=== PATIENT | female | born 1930 | race Caucasian/White ===

== ENCOUNTER 2016-07-14 16:05 | Inpatient (IN) | payer MEDICARE, OTHER ==
--- NOTE | 2016-07-14 16:28 | EDPHY ---
H & P Stated Complaint: Fall, neck and back pain Source: Patient, Family Exam Limitations: Other (cervical spine pain) - Medical/Surgical History Other PMH: Alzheimer's disease, GERD, hyperlipidemia, venous insufficiency, Osteoporosis - Family History Significant Family History: No pertinent family hx - Social History Smoking Status: Never smoked Alcohol Use: Rarely Drug Use: None Time Seen by Provider: 07/14/16 16:28 HPI/ROS: HPI: 85-year-old Alzheimer's demented female presents to emergency department by EMS with chief concern fall. A tech at [facility] where she lives heard her fall and found her on the floor. Patient complained of neck pain. Reports headache, left elbow pain, bilateral knee pain. Denies fever, chills, URI symptoms, shortness of breath, chest pain, abdominal pain, nausea, vomiting, diarrhea, urinary symptoms. Daughter reports multiple falls over the past 2 days. No allergies. ROS:10 point review of systems is negative other than as stated in HPI (Fallon Su) - Social History Additional Social History: Lives independently at [facility] (Fallon Su) - Physical Exam Exam: VS: Reviewed by me, see NN. General: Well developed, well nourished, in no acute distress. Head: Normalocephalic. Atraumatic. Face: Atraumatic. EENT: PERRLA. EOMI. No nystagmus. TMs intact bilaterally with normal landmarks. No rhinnorhea, nasal passages clear. Oropharynx without trauma or malocclusion. Neck: Supple, midline tenderness at C4-C5. Chest: Nontender, no subcutaneous air palpable. Respiratory: Breathing unlabored. Breath sounds equal bilaterally and clear to auscultation. No adventitious sounds. CV: Chest nontender, atraumatic. Heart rate regular. No murmur, distal pulses 2+ bilaterally. Brisk cap refill all extremities. GI: Abdomen soft, nontender. Nondistended. Bowel sounds normoactive and positive x4 quadrants. : No CVA tenderness. Back: no midline thoracic or lumbar tenderness Neuro: Alert. Oriented x 3. Speech clear. Nonfocal cranial nerves throughout. Sensation intact all extremities. Normal motor. Strength equal in 5 + all extremities. Skin: Skin warm, dry, Swelling right knee, ecchymosis left elbow, ecchymosis mid thoracic spine. Extremities: Atraumatic. Normal range of motion. (Fallon Su) Constitutional: Initial Vital Signs Temperature (C) 36.1 C 07/14/16 16:05 Heart Rate 76 07/14/16 16:05 Respiratory Rate 16 07/14/16 16:05 Blood Pressure 149/70 H 07/14/16 16:05 O2 Sat (%) 97 07/14/16 16:05 O2 Delivery Mode Room Air Allergies/Adverse Reactions: No Known Allergies Allergy (Unverified 07/14/16 16:18) Home Medications: Medication Instructions Recorded Donepezil HCl 07/14/16 LORAZEPAM 07/14/16 Memantine HCl 07/14/16 Protonix 07/14/16 SIMVASTATIN 07/14/16 Seroquel 07/14/16 Medical Decision Making - Diagnostics EKG Interpretation: 12 lead EKG is interpreted in Trace master View by emergency department physician. There are no acute ischemic changes. (Demetria Atkinson) Imaging Results: Imaging Impressions Cervical Spine CT 07/14/16 16:32 Impression: 1. Normal brain. 2. Thick calvarium.? Chronic seizure medication. 2. CT Cervical Spine Without Contrast History: Trauma. Pain post fall. Technique: Multislice helical CT through the cervical spine without contrast from the skull base to T1. Soft tissue and bone evaluation is performed. Sagittal and coronal reconstructions are obtained and reviewed. Dose reduction techniques were utilized. Findings: Cervical alignment is anatomic. Is mild degenerative spondylolisthesis at C3-C4 and C7-T1 and mild degenerative retrolisthesis at C5- C6. No fracture or dislocation is identified. The alignment between skull base and C1 is normal. The C1-C2 articulation is normally aligned, but osteoarthritic. The odontoid process is intact. There is severe degenerative disk space narrowing between C4 and C7 with a vacuum phenomenon at C6-C7. Facet joints are normally aligned. There is marked degenerative change of left facets C3-C5 and right facet at C7-T1. The cervical thoracic junction is normally aligned. Soft tissue window evaluation does not show evidence of epidural or prevertebral hematoma. Incidentally noted is an 8 mm low-density nodule in the right thyroid lobe that does not require any further imaging workup. Impression: No acute posttraumatic abnormality identified. 3. CT pelvis, without contrast Technique: [address] through the pelvis without contrast. Dose reduction techniques were utilized. Sagittal and coronal reconstructions are obtained and reviewed. A 3-dimensional model was constructed to assess alignment. History: Fall, pain, history of old pelvic fractures Comparison: None Findings: SI joints, pubic symphysis and hip joints are normally aligned. There are old healed fractures of the right superior and inferior pubic rami. There is an old fracture deformity of the left superior articulating facet of L4. The sacrum and coccyx are intact. There is degenerative disk disease at L4- L5. There is no evidence for a pelvic hematoma or free fluid. There is no gluteal hematoma. Nothing acute identified. Results called to Fallon Su at 5:19 PM. Final results are concordant with the initial interpretation. General information for patients regarding this examination can be found at [email or web address]. If you have questions or comments about this report, please contact me at (hospital) or [phone] (cell). Head CT 07/14/16 16:32 Impression: 1. Normal brain. 2. Thick calvarium.? Chronic seizure medication. 2. CT Cervical Spine Without Contrast History: Trauma. Pain post fall. Technique: Multislice helical CT through the cervical spine without contrast from the skull base to T1. Soft tissue and bone evaluation is performed. Sagittal and coronal reconstructions are obtained and reviewed. Dose reduction techniques were utilized. Findings: Cervical alignment is anatomic. Is mild degenerative spondylolisthesis at C3-C4 and C7-T1 and mild degenerative retrolisthesis at C5- C6. No fracture or dislocation is identified. The alignment between skull base and C1 is normal. The C1-C2 articulation is normally aligned, but osteoarthritic. The odontoid process is intact. There is severe degenerative disk space narrowing between C4 and C7 with a vacuum phenomenon at C6-C7. Facet joints are normally aligned. There is marked degenerative change of left facets C3-C5 and right facet at C7-T1. The cervical thoracic junction is normally aligned. Soft tissue window evaluation does not show evidence of epidural or prevertebral hematoma. Incidentally noted is an 8 mm low-density nodule in the right thyroid lobe that does not require any further imaging workup. Impression: No acute posttraumatic abnormality identified. 3. CT pelvis, without contrast Technique: [address] through the pelvis without contrast. Dose reduction techniques were utilized. Sagittal and coronal reconstructions are obtained and reviewed. A 3-dimensional model was constructed to assess alignment. History: Fall, pain, history of old pelvic fractures Comparison: None Findings: SI joints, pubic symphysis and hip joints are normally aligned. There are old healed fractures of the right superior and inferior pubic rami. There is an old fracture deformity of the left superior articulating facet of L4. The sacrum and coccyx are intact. There is degenerative disk disease at L4- L5. There is no evidence for a pelvic hematoma or free fluid. There is no gluteal hematoma. Nothing acute identified. Results called to Fallon Su at 5:19 PM. Final results are concordant with the initial interpretation. General information for patients regarding this examination can be found at [email or web address]. If you have questions or comments about this report, please contact me at (hospital) or [phone] (cell). Knee X-Ray 07/14/16 16:44 Impression: 1. Status post left total knee arthroplasty without complication. 2. Advanced osteoarthritis, right knee, predominant involvement lateral compartment. Pelvis CT 07/14/16 16:44 Impression: 1. Normal brain. 2. Thick calvarium.? Chronic seizure medication. 2. CT Cervical Spine Without Contrast History: Trauma. Pain post fall. Technique: Multislice helical CT through the cervical spine without contrast from the skull base to T1. Soft tissue and bone evaluation is performed. Sagittal and coronal reconstructions are obtained and reviewed. Dose reduction techniques were utilized. Findings: Cervical alignment is anatomic. Is mild degenerative spondylolisthesis at C3-C4 and C7-T1 and mild degenerative retrolisthesis at C5- C6. No fracture or dislocation is identified. The alignment between skull base and C1 is normal. The C1-C2 articulation is normally aligned, but osteoarthritic. The odontoid process is intact. There is severe degenerative disk space narrowing between C4 and C7 with a vacuum phenomenon at C6-C7. Facet joints are normally aligned. There is marked degenerative change of left facets C3-C5 and right facet at C7-T1. The cervical thoracic junction is normally aligned. Soft tissue window evaluation does not show evidence of epidural or prevertebral hematoma. Incidentally noted is an 8 mm low-density nodule in the right thyroid lobe that does not require any further imaging workup. Impression: No acute posttraumatic abnormality identified. 3. CT pelvis, without contrast Technique: [address] through the pelvis without contrast. Dose reduction techniques were utilized. Sagittal and coronal reconstructions are obtained and reviewed. A 3-dimensional model was constructed to assess alignment. History: Fall, pain, history of old pelvic fractures Comparison: None Findings: SI joints, pubic symphysis and hip joints are normally aligned. There are old healed fractures of the right superior and inferior pubic rami. There is an old fracture deformity of the left superior articulating facet of L4. The sacrum and coccyx are intact. There is degenerative disk disease at L4- L5. There is no evidence for a pelvic hematoma or free fluid. There is no gluteal hematoma. Nothing acute identified. Results called to Fallon Su at 5:19 PM. Final results are concordant with the initial interpretation. General information for patients regarding this examination can be found at [email or web address]. If you have questions or comments about this report, please contact me at (hospital) or [phone] (cell). Chest X-Ray 07/14/16 16:45 Impression: Negative chest. Hiatal hernia. Prior right axillary lymph node dissection.. Elbow X-Ray 07/14/16 16:45 Impression: Degenerative changes within the left elbow, especially the lateral compartment, without definite fracture or joint effusion identified. Comment: If patient's symptoms persist or warrant,, noncontrast CT would be more sensitive in detection of occult fracture, given the degree of underlying degenerative arthropathy present within this elbow. Knee X-Ray 07/14/16 18:00 Impression: 1. Status post left total knee arthroplasty without complication. 2. Advanced osteoarthritis, right knee, predominant involvement lateral compartment. ED Course/Re-evaluation: 1720: 85-year-old female presents to ED brought in by EMS with chief concern fall. Has had multiple falls over the last 2 days at [facility] where she lives according to family which is unusual. White count 7330. BUN 37, creatinine 0.9. EKG shows sinus rhythm, rate 77, no acute ischemic changes. Troponin negative. CT head, neck, pelvis all negative for acute injury. CTs discussed with Dr. Echeverria. Plain films pending. Straight cath urine pending. 1820: urine shows 15-25 WBCs, 3+ bacteria. Culture pending. 1 g ceftriaxone given. After cleared for cervical spine able to do full exam. Appreciate ecchymosis mid thoracic spine. Will perform CT thoracic and lumbar spine. chest x-ray negative for evidence of pneumonia. Bilateral knee x-rays negative for evidence of acute fracture or dislocation. Left elbow x-ray negative for evidence of fracture. Plain films reviewed by myself. Patient will be admitted to hospitalist service for UTI, falls. Report given to Dr. Shreyas Franco. ( Fallon Su) Differential Diagnosis: differential diagnosis includes but is not limited to mechanical fall, UTI, pneumonia, ACS, other infectious etiology, stroke (Fallon Su) Other Provider: I have evaluated and participated in the management of this patient. My co- signature indicates that I have reviewed this chart and that I agree with the findings and the plan of care as documented. My personal history and physical findings include: 85-year-old with history of dementia has had frequent falls, 2 today. The time of my exam she is awake and alert, pleasantly confused. She is unable to provide any history. HEENT: Normocephalic. Neck: Nontender over the cervical spine. Lungs: Clear to auscultation. Heart: Regular rate and rhythm. Abdomen: She has some tenderness with palpation over her left lower quadrant. No guarding. Pelvis is tender to palpation on the left. No parent instability with pelvic rock. Bruising over the thoracic spine. No appreciable T-L-S vertebral tenderness. No step-offs. There is an abrasion over the right elbow. No bony tenderness. I reviewed the x-rays and the CT scan reports. Cath urine sample reveals urinary tract infection. She received IV ceftriaxone. Hopefully this is what is behind her frequent falls. She currently lives in assisted living and will require hospitalization while she recovers from this infection. There is no evidence of sepsis. (Demetria Atkinson) - Data Points Laboratory Results: Laboratory Results 07/14/16 16:22 07/14/16 16:22 07/14/16 07/14/16 07/14/16 17:35 16:22 16:22 WBC RBC Hgb Hct MCV MCH MCHC RDW Plt Count MPV Neut % (Auto) Lymph % (Auto) [place] % (Auto) Eos % (Auto) Baso % (Auto) Nucleat RBC Rel Count Absolute Neuts (auto) Absolute Lymphs (auto) Absolute Monos (auto) Absolute Eos (auto) Absolute Basos (auto) Absolute Nucleated RBC Immature Gran % Immature Gran # Sodium 134 mEq/L mEq/L (134-144) Potassium 4.7 mEq/L mEq/L (3.5-5.2) Chloride 100 mEq/L mEq/L (97-110) Carbon Dioxide 23 mEq/l mEq/l (22-31) Anion Gap 11 mEq/L mEq/L (8-16) BUN 32 mg/dL H mg/dL (7-23) Creatinine 0.9 mg/dL mg/dL (0.6-1.0) Estimated GFR 60 Glucose 84 mg/dL mg/dL (70-100) Calcium 9.5 mg/dL mg/dL (8.5-10.4) Troponin I < 0.012 ng/mL ng/mL (0-0.034) Urine Color YELLOW Urine Appearance HAZY Urine pH TNP Ur Specific [place] TNP Urine Protein TNP Urine Ketones TNP Urine Blood TNP Urine Nitrate TNP Urine Bilirubin TNP Urine Urobilinogen TNP Ur Leukocyte Esterase TNP Urine RBC 1-3 /hpf /hpf (0-3) Urine WBC 15-25 /hpf H /hpf (0-3) Ur Epithelial Cells NONE SEEN /lpf /lpf (NONE-1+) Urine Bacteria 3+ /hpf H /hpf (NONE SEEN) Ur Culture Indicated? INDICATED H (NI) Urine Glucose TNP 07/14/16 16:22 WBC 7.33 10^3/uL 10^3/uL (3.80-9.50) RBC 3.99 10^6/uL L 10^6/uL (4.18-5.33) Hgb 12.9 g/dL g/dL (12.6-16.3) Hct 37.2 % L % (38.0-47.0) MCV 93.2 fL fL (81.5-99.8) MCH 32.3 pg pg (27.9-34.1) MCHC 34.7 g/dL g/dL (32.4-36.7) RDW 13.7 % % (11.5-15.2) Plt Count 173 10^3/uL 10^3/uL (150-400) MPV 11.5 fL fL (8.7-11.7) Neut % (Auto) 66.5 % % (39.3-74.2) Lymph % (Auto) 19.4 % % (15.0-45.0) Alger % (Auto) 12.0 % % (4.5-13.0) Eos % (Auto) 1.1 % % (0.6-7.6) Baso % (Auto) 0.5 % % (0.3-1.7) Nucleat RBC Rel Count 0.0 % % (0.0-0.2) Absolute Neuts (auto) 4.87 10^3/uL 10^3/uL (1.70-6.50) Absolute Lymphs (auto) 1.42 10^3/uL 10^3/uL (1.00-3.00) Absolute Monos (auto) 0.88 10^3/uL H 10^3/uL (0.30-0.80) Absolute Eos (auto) 0.08 10^3/uL 10^3/uL (0.03-0.40) Absolute Basos (auto) 0.04 10^3/uL 10^3/uL (0.02-0.10) Absolute Nucleated RBC 0.00 10^3/uL 10^3/uL (0-0.01) Immature Gran % 0.5 % % (0.0-1.1) Immature Gran # 0.04 10^3/uL 10^3/uL (0.00-0.10) Sodium Potassium Chloride Carbon Dioxide Anion Gap BUN Creatinine Estimated GFR Glucose Calcium Troponin I Urine Color Urine Appearance Urine pH Ur Specific [place] Urine Protein Urine Ketones Urine Blood Urine Nitrate Urine Bilirubin Urine Urobilinogen Ur Leukocyte Esterase Urine RBC Urine WBC Ur Epithelial Cells Urine Bacteria Ur Culture Indicated? Urine Glucose Medications Given: Discontinued Medications Sodium Chloride (Ns) 1,000 mls @ 0 mls/hr IV ONCE ONE PRN Reason: Wide Open Stop: 07/14/16 17:04 Last Admin: 07/14/16 17:16 Dose: 1,000 mls Ceftriaxone Sodium/Dextrose (Rocephin 1 Gm (Premix)) 50 mls @ 100 mls/hr IV EDNOW ONE PRN Reason: Protocol Stop: 07/14/16 18:36 Last Admin: 07/14/16 18:19 Dose: 50 mls Departure - Departure Disposition: [facility] Inpatient Acute Clinical Impression: Multiple falls UTI (urinary tract infection) Qualifiers: Urinary tract infection type: site unspecified Condition: Good
[2016-07-14] MEDS ORDERED: NS 1,000 ML IV ONE (17:03)
--- NOTE | 2016-07-14 17:09 | CPEKG ---
Heart Rate: 77 RR Interval: 779 P-R Interval: 152 QRSD Interval: 82 QT Interval: 392 QTC Interval: 444 P Strat[place]: 25 QRS [place]: 20 T Wave Strat[place]: 31 EKG Severity - ABNORMAL ECG - EKG Impression: SINUS RHYTHM EKG Impression: CONSIDER LEFT VENTRICULAR HYPERTROPHY EKG Impression: BORDERLINE INFERIOR Q WAVES Electronically Signed By: Demetria Atkinson 14-Jul-2016 17:21:02
[2016-07-14 17:12] LABS: % IMMATURE GRANULYOCYTES 0.5 % (0.0-1.1); ABSOLUTE IMMATURE GRANULOCYTES 0.04 10^3/uL (0.00-0.10); ADD DIFF? NO; ADD MORPH? NO; ADD SCAN? NO; ATYPICAL LYMPHOCYTE FLAG 0 (0-99); FRAGMENT RBC FLAG 0 (0-99); HEMATOCRIT 37.2 % (38.0-47.0); HEMOGLOBIN 12.9 g/dL (12.6-16.3); LEFT SHIFT FLG 10 (0-99); LIPEMIA HEMOLYSIS FLAG 90 (0-99); MEAN CELL HEMOGLOBIN 32.3 pg (27.9-34.1); MEAN CELL HEMOGLOBIN CONCENTR. 34.7 g/dL (32.4-36.7); MEAN CELL VOLUME 93.2 fL (81.5-99.8); MEAN PLATELET VOLUME 11.5 fL (8.7-11.7); PLATELET CLUMPS FLAG 10 (0-99); PLATELET COUNT 173 10^3/uL (150-400); RED BLOOD CELL COUNT 3.99 10^6/uL (4.18-5.33); RED CELL DISTRIBUTION WIDTH 13.7 % (11.5-15.2)
[2016-07-14 17:20] LABS: ANION GAP 11 mEq/L (8-16); CALCIUM 9.5 mg/dL (8.5-10.4); CARBON DIOXIDE 23 mEq/l (22-31); CHLORIDE 100 mEq/L (97-110); CREATININE 0.9 mg/dL (0.6-1.0); GLOMERULAR FILTRATION RATE 60; GLUCOSE 84 mg/dL (70-100); POTASSIUM 4.7 mEq/L (3.5-5.2); SODIUM 134 mEq/L (134-144)
[2016-07-14 17:51] LABS: COLOR YELLOW
[2016-07-14 18:01] LABS: BACTERIA 3+ /hpf (NONE SEEN); WBC,URINE 15-25 /hpf (0-3)
[2016-07-14] MEDS ORDERED: ONDANSETRON DISINTEGRATING 4 MG TAB PO PRN (22:18)
[2016-07-14] MEDS ORDERED: ACETAMINOPHEN 325 MG TAB PO PRN (22:18)
[2016-07-14] MEDS ORDERED: ONDANSETRON 4 MG/2 ML VIAL IVP PRN (22:18)
[2016-07-14] MEDS ORDERED: NS 1,000 ML IV SCH (23:15)
[2016-07-14] MEDS: QUEtiapine FUMARATE 25 MG TAB PO SCH (23:40)
--- NOTE | 2016-07-14 23:48 | GHP ---
[f rep st] HISTORY AND PHYSICAL DATE OF ADMISSION: 07/14/2016 CHIEF COMPLAINT: Fall. HISTORY OF PRESENTING ILLNESS: Patient is an 85-year-old female with history of Alzheimer's dementi a, GERD, hyperlipidemia, presenting with a fall. She resides at [facility] and a andrea h there heard a fall and found her on the floor. The patient says she tripped over a small ledge go ing into the bathroom. She immediately complained of neck pain, headache, left elbow pain, bilatera l knee pain. She denies hitting her head. She denies loss of consciousness. She denies prodromal symptoms including chest pain, shortness of breath, diaphoresis, clamminess. She denies fevers, chi lls or cough. Does report increased urinary frequency and burning. Per daughter, patient has had m ultiple falls over the last 2 days. REVIEW OF SYSTEMS: I completed a 10-point review of systems, negative except as noted in HPI. PAST MEDICAL HISTORY: 1. Alzheimer disease. 2. GERD. 3. Hyperlipidemia. 4. Venous insufficiency. 5. Osteoporosis. 6. Breast cancer, status post chemo. PAST SURGICAL HISTORY: 1. Left TKA. 2. Breast lumpectomy. SOCIAL HISTORY: Lives at [facility]. Drinks red wine socially. Daughter lives in t own. FAMILY HISTORY: Denies cancer or diabetes. ALLERGIES: No known drug allergies. HOME MEDICATIONS: Ativan p.r.n., Namenda 10, simvastatin 10 mg daily. Seroquel 25 mg at bedtime. Protonix 40 mg daily. Ocuvite. Donepezil 10 mg daily. Aspirin 81 mg daily. Advil p.r.n.. PHYSICAL EXAM: VITAL SIGNS: Temperature 37, blood pressure 135/51, heart rate is in the 80s, respi ration 18, 99% on room air. GENERAL: Patient is lying in bed, no acute distress. HEENT: PERRLA, EOMI. Oropharynx clear. CV: Regular rate and rhythm. No murmurs, gallops, or rubs. LUNGS: Christa r to auscultation bilaterally. ABDOMEN: Soft, nontender, nondistended. Positive bowel sounds. : No suprapubic or CVA tenderness. MUSCULOSKELETAL: 5/5 upper and lower extremity strength. Smal l ecchymosis over left gacria. SKIN: Warm, dry. Chronic venous stasis changes, bilateral ankles. N EUROLOGIC: Cranial nerves 2 through 12 intact. PSYCH: Alert to self and [place], not to date or city. LABORATORY: WBC 7, hemoglobin 12, hematocrit , platelets 173. Sodium 137, potassium 4.7, chloride 100, carbon dioxide 23, BUN 32, creatinine 0.9, glucose 84, calcium 9.5. Troponin less th an 0.012. IMAGING: Cervical/lumbar/thoracic spine CT: Marked lumbar levoscoliosis, multiple degenerative bao nges. No definite fracture. Moderate size hiatal hernia. Head CT negative for acute ischemia. Pelvic CT unremarkable. Chest x-ray, personally reviewed by me: Hiatal hernia. No evidence of effusion or opacity. Elbow x-ray: Degenerative changes within left elbow, especially lateral compartment. No definite f racture. Knee x-ray: Status post left TKA without complication. Advanced OA in right knee. EKG is personally reviewed by me: Normal sinus rhythm. LVH. ASSESSMENT AND PLAN: 1. Mechanical fall: Patient denies prodromal symptoms to suggest a cardiac etiology or arrhythmia. EKG and troponin are negative here. Suspect secondary to underlying urinary tract infection. Tra yasmeen evaluation imaging was negative for acute fracture. Will treat urinary tract infection. PT/OT to evaluate. 2. Urinary tract infection: Symptomatic. Continue ceftriaxone. Culture is pending. Afebrile wit hout leukocytosis. 3. Alzheimer. Continue home medications. 4. Gastroesophageal reflux disease. Continue PPI. 5. Hyperlipidemia: Statin. 6. Diet: Regular. 7. DVT prophylaxis: Lovenox. DISPOSITION: Patient warrants inpatient admission given acute falls which places her at risk for sharpe bsequent harm. PT, OT to evaluate. Continue IV antibiotics. /[id number]/MODL
[2016-07-15 05:44] LABS: ANION GAP 6 mEq/L (8-16); CALCIUM 8.4 mg/dL (8.5-10.4); CARBON DIOXIDE 22 mEq/l (22-31); CHLORIDE 107 mEq/L (97-110); CREATININE 0.8 mg/dL (0.6-1.0); GLOMERULAR FILTRATION RATE > 60; GLUCOSE 77 mg/dL (70-100); POTASSIUM 4.2 mEq/L (3.5-5.2); SODIUM 135 mEq/L (134-144)
[2016-07-15] MEDS: PRESERVISION AREDS2 FORMULA EYE VIT 1 EACH PO SCH (08:36)
[2016-07-15] MEDS: DONEPEZIL HCL 5 MG TAB PO SCH (08:36)
[2016-07-15] MEDS: ENOXAPARIN 40 MG/0.4 ML SYR SC SCH (08:37)
[2016-07-15] MEDS: PANTOPRAZOLE SODIUM 40 MG TAB PO SCH (08:37)
[2016-07-15] MEDS: PRAVASTATIN SODIUM 20 MG TAB PO SCH (08:37)
[2016-07-15] MEDS: MEMANTINE HCL 5 MG TAB PO SCH ×2 (08:37→17:03)
[2016-07-15] MEDS: ASPIRIN 81 MG CHEWABLE TAB PO SCH (08:37)
[2016-07-15] MEDS ORDERED: Herbals/Supplements -Info Only PO SCH (09:00)
[2016-07-15] MEDS: LORazepam 0.5 MG TAB PO PRN ×2 (09:29→21:36)
--- NOTE | 2016-07-15 13:34 | HOSPPROG ---
Hospitalist Progress Note Assessment/Plan: 85y female with mechanical fall. From [place]. This is my first encounter. Chart reviewed. D/W CM. #Fall mechanical eval done PT/oT #Dementia at baseline #UTI cont CTX await cx #Pain controlled #Dispo pt wants to go home await PT/OT recs and eval urine cx pending pt needs unclear consider DC in am if stable Subjective: Wants to go home. Denies any pain. Angry and agitated. Objective: Vital Signs Temp Pulse Resp BP Pulse Ox 36.8 C 96 16 144/65 H 93 07/15/16 07:07 07/15/16 10:00 07/15/16 07:07 07/15/16 10:00 07/15/16 10:00 Laboratory Results 07/15/16 04:53 07/14/16 07/15/16 07/16/16 05:59 05:59 05:59 Intake Total 1889 Balance 1889 - Physical Exam Constitutional: no apparent distress, appears nourished, not in pain Eyes: PERRL, anicteric sclera, EOMI Ears, Nose, Mouth, Throat: moist mucous membranes, hearing normal, ears appear normal Cardiovascular: No JVD, No tachycardia, No edema Respiratory: no respiratory distress, no rales or rhonchi, reduced air movement Gastrointestinal: No tenderness, No ascites, No guarding Skin: warm, normal color, No mottled Musculoskeletal: muscular tenderness, abnormal gait, generalized weakness Neurologic: No weakness, No asterixes Psychiatric: not encephalopathic, anxious, poor insight, poor judgement, poor memory ICD10 Worksheet Patient Problems: Problems Problem Status Onset UTI (urinary tract infection) Acute Multiple falls Acute
[2016-07-15] MEDS: QUEtiapine FUMARATE 25 MG TAB PO SCH (21:36)
[2016-07-16 08:45] VITALS: BP 166/105; PULSE 97; RESP 14; TEMP 97.6; O2SAT 94
[2016-07-16] MEDS: DONEPEZIL HCL 5 MG TAB PO SCH (08:53)
[2016-07-16] MEDS: MEMANTINE HCL 5 MG TAB PO SCH (08:53)
[2016-07-16] MEDS: PRESERVISION AREDS2 FORMULA EYE VIT 1 EACH PO SCH (08:53)
[2016-07-16] MEDS: ASPIRIN 81 MG CHEWABLE TAB PO SCH (08:53)
[2016-07-16] MEDS: PANTOPRAZOLE SODIUM 40 MG TAB PO SCH (08:53)
[2016-07-16] MEDS: PRAVASTATIN SODIUM 20 MG TAB PO SCH (08:53)
[2016-07-16] MEDS: ENOXAPARIN 40 MG/0.4 ML SYR SC SCH (08:54)
--- NOTE | 2016-07-16 09:33 | PDIAF ---
- Diagnosis Diagnosis: FAll Code Status: Full Code - Medication Management Discharge Medications: Medications to Continue on Transfer Aspirin [Aspirin 81mg (*)] 81 mg PO DAILY@08 07/14/16 [Last Taken 07/14/16] Beta-Carotene(A) W-C & E/Min [Ocuvite] 1 tab PO DAILY 07/14/16 [Last Taken 07/14] Donepezil HCl 10 mg PO DAILY@07/14/16 [Last Taken 07/14/16] Herbals/Supplements -Info Only 1 ea PO DAILY 07/14/16 [Last Taken 07/14/16] Ibuprofen/Diphenhydramine Cit [Advil Pm Caplet] 1 each PO HS 07/14/16 [Last Taken 07/13/16] LORazepam [Ativan (*)] 0.5 mg PO Q6HRS PRN 07/14/16 [Last Taken 07/13/16] Memantine HCl [Namenda 10 mg] 10 mg PO BID@,07/14/16 [Last Taken 07/14/16 08:00 1 TAB] Pantoprazole Sodium [Protonix 40mg (*)] 40 mg PO DAILY@07/14/16 [Last Taken 07/14/16] QUEtiapine FUMARATE [Seroquel 25 mg (*)] 25 mg PO HS 07/14/16 [Last Taken ] Simvastatin 10 mg PO DAILY@07/14/16 [Last Taken 07/14/16] Acetaminophen [Tylenol 325mg (*)] 650 mg PO Q4HRS PRN #0 tab 07/16/16 [Last Taken Unknown] Discharge Medications: Refer to the Discharge Home Medication list for PRN reason. PICC Care - Routine: N/A - Orders Services needed: Home Care, Physical Therapy, Occupational Therapy Home Care Face to Face: I certify that this patient was under my care and that I had the required [id number] encounter meeting the encounter requirements on the discharge day. My findings support the fact that the patient is homebound as defined in CMS Chapter 7 Medicare Benefits Manual 30.1.1, The condition of the patient is such that there exists a normal inability to leave home and consequently, leaving home would require a considerable and taxing effort. Diet Recommendation: no restrictions on diet - Follow Up Care Current Providers and Referrals: Patient,NotPresent [Unknown] - As per Instructions
--- NOTE | 2016-07-16 14:04 | GDS ---
[f rep st] DISCHARGE SUMMARY DISCHARGE DIAGNOSES: 1. Mechanical fall. 2. Dementia. 3. E coli pansensitive urinary tract infection. 4. Pain. PHYSICAL EXAM: GENERAL: The patient is alert. VITAL SIGNS: Afebrile at 36.4, pulse is 97, respiratory rate is 14, blood pressure is 166/105. She is saturating 94% on room air. I have seen and evaluated the patient on the day of discharge. HOSPITAL COURSE: Ms Saunders is an 85-year-old female who suffered a mechanical fall, presented to [facility] emergency room for evaluation. She was evaluated and diagnosed with. 1. Mechanical fall. She was cleared by Trauma Service in the emergency room. She did have physica l therapy and occupational therapy evaluation during this hospitalization and will continue home car e in the outpatient setting. She will return to [place] where she normally resides. 2. Dementia. Her mentation is at baseline at the time of disposition. 3. Pansensitive E coli urinary tract infection. She has been treated with 2 doses of Rocephin as w ell as 1 dose of Levaquin during this hospitalization. She should not require any further treatment for this condition and will follow with her primary care physician. 4. Pain. This is well controlled. 5. Disposition. Ms Saunders will return to [place] where she normally resides. I have ordered formerly [facility] care for her at this time of disposition. She and her son are both in agreement with this discharge plan. DISCHARGE MEDICATIONS: I have not adjusted the patient's previously prescribed home medications to the best of my knowledge. Once again home health care has been provided for the patient at the time of disposition. I spent greater than 35 minutes in the care, coordination, and management of this patient's discharg e. /[id number]/MODL
== END 2016-07-16 10:44 | disposition home health service (06) | DRG 92 ==
LOC: EDUNIT# → F3E 20:57
PROVIDERS: ADMIT Student in an Organized Health Care Education/Training Program; ATTEND Family Medicine
DX: R29.6 Repeated falls (principal); N39.0 Urinary tract infection, site not specified; M54.2 Cervicalgia; M25.522 Pain in left elbow; B96.20 Unspecified Escherichia coli [E. coli] as the cause of diseases classified elsewhere; K21.9 Gastro-esophageal reflux disease without esophagitis; G30.9 Alzheimer's disease, unspecified; F02.80 Dementia in other diseases classified elsewhere, unspecified severity, without behavioral disturbance, psychotic disturbance, mood disturbance, and anxiety; M81.0 Age-related osteoporosis without current pathological fracture; E78.5 Hyperlipidemia, unspecified; W01.0XXA Fall on same level from slipping, tripping and stumbling without subsequent striking against object, initial encounter; Y92.192 Bathroom in other specified residential institution as the place of occurrence of the external cause
CPT/HCPCS: 96365; 97161-GP; 97165-GO; G8978-GP-CI; G8979-GP-CI; G8980-GP-CI; G8987-GO-CJ; G8988-GO-CJ; J0696; J1650

== ENCOUNTER 2016-08-07 11:08 | Emergency (ER) | payer OTHER ==
[2016-08-07 11:16] VITALS: RESP 18; TEMP 98.1
--- NOTE | 2016-08-07 11:36 | CPEKG ---
Heart Rate: 73 RR Interval: 822 P-R Interval: 164 QRSD Interval: 74 QT Interval: 372 QTC Interval: 410 P [place]: 53 QRS [place]: 9 T Wave [place]: 39 EKG Severity - NORMAL ECG - EKG Impression: SINUS RHYTHM Electronically Signed By: Mann Nathan 07-Aug-2016 15:07:55
[2016-08-07 11:40] LABS: % IMMATURE GRANULYOCYTES 0.4 % (0.0-1.1); ABSOLUTE IMMATURE GRANULOCYTES 0.02 10^3/uL (0.00-0.10); ADD DIFF? NO; ADD MORPH? NO; ADD SCAN? NO; ATYPICAL LYMPHOCYTE FLAG 40 (0-99); FRAGMENT RBC FLAG 0 (0-99); HEMATOCRIT 40.4 % (38.0-47.0); LEFT SHIFT FLG 10 (0-99); LIPEMIA HEMOLYSIS FLAG 90 (0-99); MEAN CELL HEMOGLOBIN 32.1 pg (27.9-34.1); MEAN CELL HEMOGLOBIN CONCENTR. 34.7 g/dL (32.4-36.7); MEAN CELL VOLUME 92.7 fL (81.5-99.8); MEAN PLATELET VOLUME 10.8 fL (8.7-11.7); PLATELET CLUMPS FLAG 10 (0-99); PLATELET COUNT 209 10^3/uL (150-400); RED BLOOD CELL COUNT 4.36 10^6/uL (4.18-5.33)
[2016-08-07 11:52] LABS: ANION GAP 9 mEq/L (8-16); CARBON DIOXIDE 24 mEq/l (22-31); CHLORIDE 101 mEq/L (97-110); CREATININE 1.1 mg/dL (0.6-1.0); GLOMERULAR FILTRATION RATE 47; GLUCOSE 101 mg/dL (70-100); POTASSIUM 5.5 mEq/L (3.5-5.2); SODIUM 134 mEq/L (134-144)
--- NOTE | 2016-08-07 12:25 | EDPHY ---
H & P Stated Complaint: Elevated K+ yesterday at [facility];sent for recheck; joan solomon Time Seen by Provider: 08/07/16 11:11 HPI/ROS: CHIEF COMPLAINT: Evaluation of hyperkalemia HISTORY OF PRESENT ILLNESS: The patient presents to the ED for evaluation of hyperkalemia. She had been on Bactrim last week and stop taking the medication several days ago. She was noted to have a potassium yesterday of 6.4. The patient is on no medications for hypertension. She does not take any potassium supplementation. The patient has no complaints of abdominal pain, nausea, vomiting or fever. In the ED the patient is quite insistent she would like to be discharged home. The patient is asymptomatic today. REVIEW OF SYSTEMS: A comprehensive 10 point review of systems is otherwise negative aside from elements mentioned in the history of present illness. Source: Patient Exam Limitations: No limitations - Personal History Current Tetanus Diphtheria and Acellular Pertussis (TDAP): Yes - Medical/Surgical History Hx Asthma: No Hx Chronic Respiratory Disease: No Hx Diabetes: No Hx Cardiac Disease: No Hx Renal Disease: No Hx Cirrhosis: No Hx Alcoholism: No Hx HIV/AIDS: No Hx Splenectomy or Spleen Trauma: No Other PMH: Alzheimer's disease, GERD, hyperlipidemia, venous insufficiency, Osteoporosis - Social History Smoking Status: Never smoked - Physical Exam Exam: General Appearance: Alert, no distress Eyes: Pupils equal and round no pallor or injection ENT, Mouth: Mucous membranes moist Respiratory: There are no retractions, lungs are clear to auscultation Cardiovascular: Regular rate and rhythm Gastrointestinal: Abdomen is soft and nontender, no masses, bowel sounds normal Neurological: Alert and oriented x1, this is baseline with her history of Alzheimer's disease, 5/5 strength noted all 4 extremities, cranial nerves 2-12 intact Skin: Warm and dry, no rashes Musculoskeletal: Neck is supple nontender Extremities: symmetrical, full range of motion Constitutional: Initial Vital Signs Temperature (C) 36.7 C 08/07/16 11:10 Heart Rate 76 08/07/16 11:10 Respiratory Rate 18 08/07/16 11:10 Blood Pressure 132/69 H 08/07/16 11:10 O2 Sat (%) 96 08/07/16 11:10 O2 Delivery Mode Room Air Allergies/Adverse Reactions: No Known Allergies Allergy (Verified 08/07/16 11:13) Home Medications: Medication Instructions Recorded Aspirin [Aspirin 81mg (*)] 81 mg PO DAILY@07/14/16 Beta-Carotene(A) W-C & E/Min 1 tab PO DAILY 07/14/16 [Ocuvite] Donepezil HCl 10 mg PO DAILY@08 07/14/16 Herbals/Supplements -Info Only 1 ea PO DAILY 07/14/16 Ibuprofen/Diphenhydramine Cit 1 each PO HS 07/14/16 [Advil Pm Caplet] LORazepam [Ativan (*)] 0.5 mg PO Q6HRS PRN 07/14/16 Memantine HCl [Namenda 10 mg] 10 mg PO BID@,07/14/16 Pantoprazole Sodium [Protonix 40mg 40 mg PO DAILY@07/14/16 (*)] QUEtiapine FUMARATE [Seroquel 25 25 mg PO HS 07/14/16 mg (*)] Simvastatin 10 mg PO DAILY@07/14/16 Acetaminophen [Tylenol 325mg (*)] 650 mg PO Q4HRS PRN #0 tab 07/16/16 LORazepam [Ativan (*)] 0.5 mg PO 08/07/16 Medical Decision Making ED Course/Re-evaluation: The patient had an IV established. She received a L of normal saline. I rechecked her potassium in his now down to 5.6. At this point time she certainly could have had hyperkalemia secondary to her Bactrim usage. She is no longer on this medication. She has had a reassuring drop in her potassium over the past 24 hours. There is no indication for hospitalization or emergent treatment of her mild hyperkalemia. The patient will continue aggressive hydration over the next day. The plan will be for the patient to have a recheck of her potassium in 48 hours. They do understand return to the ED for any syncope, chest pain, difficulty breathing, abnormal behavior or other concerns. Differential Diagnosis: Differential diagnosis considered includes hyperkalemia, renal failure, dehydration, medication side effect - Data Points Laboratory Results: Laboratory Results 08/07/16 11:30 08/07/16 11:30 08/07/16 08/07/16 08/07/16 11:30 11:30 11:27 WBC 4.68 10^3/uL 10^3/uL (3.80-9.50) RBC 4.36 10^6/uL 10^6/uL (4.18-5.33) Hgb 14.0 g/dL g/dL (12.6-16.3) POC Hgb 14.6 gm/dL gm/dL (12.6-16.3) Hct 40.4 % % (38.0-47.0) POC Hct 43 % % (38-47) MCV 92.7 fL fL (81.5-99.8) MCH 32.1 pg pg (27.9-34.1) MCHC 34.7 g/dL g/dL (32.4-36.7) RDW 13.0 % % (11.5-15.2) Plt Count 209 10^3/uL 10^3/uL (150-400) MPV 10.8 fL fL (8.7-11.7) Neut % (Auto) 60.0 % % (39.3-74.2) Lymph % (Auto) 26.9 % % (15.0-45.0) [place] % (Auto) 10.5 % % (4.5-13.0) Eos % (Auto) 1.1 % % (0.6-7.6) Baso % (Auto) 1.1 % % (0.3-1.7) Nucleat RBC Rel Count 0.0 % % (0.0-0.2) Absolute Neuts (auto) 2.81 10^3/uL 10^3/uL (1.70-6.50) Absolute Lymphs (auto) 1.26 10^3/uL 10^3/uL (1.00-3.00) Absolute Monos (auto) 0.49 10^3/uL 10^3/uL (0.30-0.80) Absolute Eos (auto) 0.05 10^3/uL 10^3/uL (0.03-0.40) Absolute Basos (auto) 0.05 10^3/uL 10^3/uL (0.02-0.10) Absolute Nucleated RBC 0.00 10^3/uL 10^3/uL (0-0.01) Immature Gran % 0.4 % % (0.0-1.1) Immature Gran # 0.02 10^3/uL 10^3/uL (0.00-0.10) POC Sodium 136 mEq/L mEq/L (134-144) Sodium 134 mEq/L mEq/L (134-144) POC Potassium 5.3 mEq/L H mEq/L (3.3-5.0) Potassium 5.5 mEq/L H mEq/L (3.5-5.2) POC Chloride 98 mEq/L mEq/L (97-110) Chloride 101 mEq/L mEq/L (97-110) Carbon Dioxide 24 mEq/l mEq/l (22-31) Anion Gap 9 mEq/L mEq/L (8-16) POC BUN 16 mg/dL mg/dL (7-23) BUN 16 mg/dL mg/dL (7-23) Creatinine 1.1 mg/dL H mg/dL (0.6-1.0) POC Creatinine 1.1 mg/dL H mg/dL (0.6-1.0) Estimated GFR 47 Glucose 101 mg/dL H mg/dL (70-100) POC Glucose 102 mg/dL H mg/dL (70-100) Calcium 10.0 mg/dL mg/dL (8.5-10.4) Point of Care Test Results: 08/07/16 11:27 POC Sodium 136 POC Potassium 5.3 H POC Chloride 98 POC BUN 16 POC Creatinine 1.1 H POC Glucose 102 H Departure - Departure Disposition: Home, Routine, Self-Care Clinical Impression: Hyperkalemia Condition: Good Instructions: Hyperkalemia (ED) Additional Instructions: 1. Please have your primary care provider recheck your potassium level in 2 days. 2. Return to the ED for any fever, vomiting or other concerns. Referrals: CB,ANTHONYK [Other] - As per Instructions
[2016-08-07 12:42] VITALS: BP 154/77; PULSE 71; O2SAT 99
== END 2016-08-07 12:42 | disposition home or self-care (01) ==
DX: E87.5 Hyperkalemia (principal); Z79.82 Long term (current) use of aspirin
CPT/HCPCS: 82947-QW

== ENCOUNTER 2017-10-31 17:47 | Emergency (ER) | payer OTHER ==
--- NOTE | 2017-10-31 17:55 | EDPHY ---
H & P Time Seen by Provider: 10/31/17 17:52 HPI/ROS: CHIEF COMPLAINT: Leg pain HISTORY OF PRESENT ILLNESS: The patient is an 87-year-old female with a history of Alzheimer's dementia as well as left knee and hip replacement. She reportedly fell at her halfway 5 days ago. She has been ambulatory since then according to paramedics with her walker which is baseline. Today she began complaining of increased pain and the dispatch nurse came to evaluate. She told them that she had the right knee and hip pain. However when paramedics evaluated her she told them that she had bilateral knee pain. For me she initially just said that her legs hurt when she walks. When I tried to get her to pinpoint in more precisely she initially told me she has bilateral hip pain and then later that she has bilateral knee pain. She has normal mobility in her legs. No falls since 5 days ago. She declined pain medication. Severity: Moderate Modifying factors: Ambulation REVIEW OF SYSTEMS: Constitutional: denies: chills, fever, recent illness, recent injury EENTM: denies: blurred vision, double vision, nose congestion Respiratory: denies: cough, shortness of breath Cardiac: denies: chest pain, irregular heart rate, lightheadedness, palpitations Gastrointestinal/Abdominal: denies: abdominal pain, diarrhea, nausea, vomiting, blood streaked stools Genitourinary: denies: dysuria, frequency, hematuria, pain Musculoskeletal: denies: joint pain, muscle pain Skin: denies: lesions, rash, jaundice, bruising Neurological: denies: headache, numbness, paresthesia, tingling, dizziness, weakness Hematologic/Lymphatic: denies: blood clots, easy bleeding, easy bruising Immunologic/allergic: denies: HIV/AIDS, transplant 10 systems reviewed and negative except as noted EXAM: GENERAL: Well-appearing, well-nourished and in no acute distress. HEAD: Atraumatic, normocephalic. EYES: Pupils equal round and reactive to light, extraocular movements intact, sclera anicteric, conjunctiva are normal. ENT: TMs normal, nares patent, oropharynx clear without exudates. Moist mucous membranes. NECK: Normal range of motion, supple without lymphadenopathy or JVD. LUNGS: Breath sounds clear to auscultation bilaterally and equal. No wheezes rales or rhonchi. HEART: Regular rate and rhythm without murmurs, rubs or gallops. ABDOMEN: Soft, nontender, normoactive bowel sounds. No guarding, no rebound. No masses appreciated. BACK: No CVA tenderness, no spinal tenderness, step-offs or deformities EXTREMITIES: Normal range of motion, no pitting or edema. No clubbing or cyanosis. NEUROLOGICAL: Cranial nerves II through XII grossly intact. Normal speech, normal gait. 5/5 strength, normal movement in all extremities, normal sensation , normal reflexes PSYCH: Normal mood, normal affect. SKIN: Warm, dry, normal turgor, no visible rashes or lesions. Source: Patient, EMS Exam Limitations: Clinical condition - Medical/Surgical History Hx Asthma: No Hx Chronic Respiratory Disease: No Hx Diabetes: No Hx Cardiac Disease: No Hx Renal Disease: No Hx Cirrhosis: No Hx Alcoholism: No Hx HIV/AIDS: No Hx Splenectomy or Spleen Trauma: No Other PMH: Alzheimer's disease, GERD, hyperlipidemia, venous insufficiency, Osteoporosis - Family History Significant Family History: No pertinent family hx - Social History Smoking Status: Never smoked Alcohol Use: Sober Drug Use: None Constitutional: Initial Vital Signs Temperature (C) 36.8 C 10/31/17 17:57 Heart Rate 89 10/31/17 17:57 Respiratory Rate 16 10/31/17 17:57 Blood Pressure 154/87 H 10/31/17 17:57 O2 Sat (%) 96 10/31/17 17:57 O2 Delivery Mode Room Air Allergies/Adverse Reactions: No Known Allergies Allergy (Verified 09/24/17 20:57) Home Medications: Medication Instructions Recorded Aspirin [Aspirin 81mg (*)] 81 mg PO DAILY@07/14/16 LORazepam [Ativan (*)] 0.5 mg PO BID@,07/14/16 Memantine HCl [Namenda 10 mg] 10 mg PO BID@,07/14/16 Pantoprazole Sodium [Protonix 40mg 40 mg PO DAILY@07/14/16 (*)] QUEtiapine FUMARATE [Seroquel 25 25 mg PO BID 07/14/16 mg (*)] LORazepam [Ativan (*)] 1 mg PO BID@08,16 09/25/17 Loperamide HCl [Imodium 2 mg (*)] 2 mg PO Q4HRS PRN 09/25/17 Enoxaparin [Lovenox 40 MG (*)] 40 mg SC DAILY #10 syr 09/26/17 Acetaminophen [Tylenol ES 500 mg 1,000 mg PO TID tab 09/28/17 (*)] Ondansetron Odt [Zofran Odt 4 mg 4 mg PO Q4HRS PRN tab 09/28/17 (*)] Polyethylene Glycol 3350 [Miralax 17 gm PO DAILY PRN pkt 09/28/17 17 gm (*)] Sennosides/Docusate Sodium 1 - 2 tab PO BID tab 09/28/17 [Senokot-S] Cephalexin [Keflex] 500 mg PO TID #21 cap 10/31/17 Medical Decision Making - Diagnostics Imaging Results: Imaging Impressions Knee X-Ray 10/31/17 17:55 Impression: 1. Positive joint effusion. 2. No definite right knee fracture. 3. 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 Pelvis X-Ray 10/31/17 17:55 Impression: Left total hip arthroplasty with acute fracture of the left greater trochanter. Knee X-Ray 10/31/17 17:56 Impression: Left total knee arthroplasty without acute fracture or dislocation. Imaging: Discussed imaging studies w/ fisher scallop Radiologist ED Course/Re-evaluation: 6:00 p.m. the patient's daughter is no here. She states that the patient fell about a week ago but has been up and standing and doing physical therapy very well since then. Her fall was from a wheelchair onto her buttocks. The patient does not walk at baseline. Over the last 36 hr or so she has become more grumpy and fatigued. She is wondering about a urinary tract infection. The halfway called a nurse practitioner however who noticed that the patient's left leg is slightly shortened and was concerned about a hip dislocation. 6:35 p.m. I discussed the case with Dr. Willingham who replaced the patient's hip. He looked at the x-rays and thinks that the greater trochanter may be slightly displaced compared to previous x-rays but not much compared to an x-ray he had at his office. It is possible that she fell on this and it is causing her pain. He states that this would be non operative and he she would be safe to go home and follow up in his clinic. 7:15 p.m. the patient clearly has urinary tract infection. Her vital signs are stable. She is afebrile. I will start her on Keflex. Her daughter feels safe taking her back to the [facility]. We discussed indications for returning here. Daughter is also requesting that we address a small wound on her right heel. Daughter states that she used to have a special boot to prevent ulcers but has not seen for the last few days. Differential Diagnosis: Partial list of the Differential diagnosis considered include but were not limited to; urinary tract infection, hip fracture and although unlikely based on the history and physical exam, I also considered knee fracture, sepsis. I discussed these differential diagnoses and the plan with the patient as well as the usual and expected course. The patient understands that the diagnosis is provisional and that in medicine we are not always correct and that further workup is often warranted. Usual and customary warnings were given. All of the patient's questions were answered. The patient was instructed to return to the emergency department should the symptoms at all worsen or return, otherwise to followup with the physician as we discussed. - Data Points Laboratory Results: 10/31/17 18:35 Urine Color YELLOW Urine Appearance TURBID Urine pH 5.0 (5.0-7.5) Ur Specific [place] 1.008 (1.002-1.030) Urine Protein 1+ H (NEGATIVE) Urine Ketones NEGATIVE (NEGATIVE) Urine Blood 1+ H (NEGATIVE) Urine Nitrate NEGATIVE (NEGATIVE) Urine Bilirubin NEGATIVE (NEGATIVE) Urine Urobilinogen NEGATIVE EU EU (0.2-1.0) Ur Leukocyte Esterase 3+ H (NEGATIVE) Urine RBC 50-182 /hpf H /hpf (0-3) Urine WBC 50-182 /hpf H /hpf (0-3) Ur Epithelial Cells NONE SEEN /lpf /lpf (NONE-1+) Amorphous Sediment PRESENT /hpf /hpf (NONE-1+) Urine Bacteria 3+ /hpf H /hpf (NONE SEEN) Urine Glucose NEGATIVE (NEGATIVE) Medications Given: Discontinued Medications Cephalexin (Keflex 500 Mg Prepack#4) 1 btl TAKEHOME EDNOW ONE PRN Reason: Protocol Stop: 10/31/17 19:59 Last Admin: 10/31/17 19:59 Dose: 1 btl Cephalexin HCl (Keflex) 500 mg PO EDNOW ONE PRN Reason: Protocol Stop: 10/31/17 19:12 Last Admin: 10/31/17 19:20 Dose: 500 mg Departure - Departure Disposition: Home, Routine, Self-Care Clinical Impression: UTI (urinary tract infection) Qualifiers: Urinary tract infection type: acute cystitis Hematuria presence: without hematuria Qualified Code(s): N30.00 - Acute cystitis without hematuria Condition: Fair Instructions: Urinary Tract Infection in Women (ED) Additional Instructions: Please regularly dress the wound on her right heel. Referrals: NONE *PRIMARY CARE P,. [Primary Care Provider] - 2-3 days, call for appt. Prescriptions: Cephalexin [Keflex] 500 mg PO TID #21 cap
[2017-10-31] MEDS ORDERED: CEPHALEXIN 500 MG CAP PO ONE (19:11)
[2017-10-31] MEDS ORDERED: CEPHALEXIN 500MG PREPACK#4 BTL TAKEHOME ONE ×2 (19:53→19:58)
[2017-10-31 20:06] VITALS: BP 147/64
== END 2017-10-31 21:03 | disposition home or self-care (01) ==
LOC: EDUNIT# → EDBD
DX: M25.561 Pain in right knee (principal); M25.562 Pain in left knee; N30.00 Acute cystitis without hematuria; E78.5 Hyperlipidemia, unspecified; G30.9 Alzheimer's disease, unspecified; M81.0 Age-related osteoporosis without current pathological fracture; Z96.651 Presence of right artificial knee joint; Z96.652 Presence of left artificial knee joint; W05.0XXA Fall from non-moving wheelchair, initial encounter; Y92.129 Unspecified place in nursing home as the place of occurrence of the external cause